=== PATIENT | female | born 1985 | race Caucasian/White ===

== ENCOUNTER 2016-11-05 18:40 | Emergency (ER) | payer BC ==
[~2016-11-05] VITALS: Ht 165.1 cm; Wt 111.7 kg
[~2016-11-05 18:40] MED LIST: AMARYL2 MG PO; CLEOCIN300 MG PO; COMPAZINE10 MG PO; GLUCOMETER MC; GLUCOPHAGE XR750 MG PO; JANUVIA100 MG PO; JANUVIA25 MG PO; LANCETS1 EACH MC; MULTIPLE VITAM1 EAC1 PO; NORCO 5/3251 TABLET PO; TENORMIN50 MG PO; TEST STRIPS MC; ZESTRIL10 MG PO
[2016-11-05 18:45] VITALS: BP 157/99
== END 2016-11-05 19:12 | disposition left against medical advice (07) ==
LOC: EME 18:40
DX: B83.9 Helminthiasis, unspecified (principal); R05 Cough; R11.0 Nausea; Z53.21 Procedure and treatment not carried out due to patient leaving prior to being seen by health care provider